=== PATIENT | male | born 1965 | race Caucasian/White ===

== ENCOUNTER 2017-02-04 11:40 | Emergency (ER) | payer OTHER ==
[~2017-02-04] VITALS: Ht 177.8 cm; Wt 91.5 kg
[2017-02-04 11:43] VITALS: TEMP 36.5; Ht 177.8 cm; Wt 91.5 kg
--- NOTE | 2017-02-04 11:58 | EMERGENCY ROOM VISIT NOTE ---
History First contact with patient: 11:48 Chief Complaint: SHOULDER PAIN Stated Complaint: LEFT SHOULDER PAIN/INJURY History of Present Illness The patient is a 51 year old male who presents to the Emergency Room with complaints of left shoulder injury. The patient was playing softball yesterday. He was diving into [employer] and injured the left shoulder. He had very significant and severe pain overnight. The patient is unable to lift his arm up. The patient rates his discomfort a 3/10. He denies striking his head or having loss of consciousness. He denies any numbness or tingling. He denies any chest pain or trouble breathing. He denies any other injury. He denies any previous shoulder injury. Review of Systems A 10 system review of systems was completed with positives and pertinent negatives listed in the HPI. Past Medical/Surgical History patient denies Social History Smoking Status: Never Smoker Marital Status: Housing Status: lives with family Current/Historical Medications No Active Prescriptions or Reported Meds Allergies Coded Allergies: No Known Allergies (Verified , 02/04/17) Physical Exam Vital Signs Date Time Temp Pulse Resp B/P (MAP) Pulse Ox O2 Delivery O2 Flow Rate FiO2 02/04/17 12:42 70 20 135/78 98 02/04/17 11:43 36.5 63 16 144/89 97 Room Air Physical Exam VITALS: Vitals are noted on the nurse's note and reviewed by myself. Vital signs stable. GENERAL: This is a 51-year-old male, in no acute distress, nondiaphoretic, well- developed well-nourished. SKIN: There is edema noted to the left shoulder. There is no obvious deformity. There are no open areas. There is no tenting of the skin. Capillary reflex less than 2 seconds. HEAD: Normocephalic atraumatic. EARS: The external ears are normal in appearance. EYES: Pupils equal round and reactive to light and accommodation. Conjunctivae without injection, sclerae without icterus. Extraocular movements intact. NOSE: Patent, turbinates without inflammation or discharge. MOUTH: Mucous membranes moist. NECK: Supple without nuchal rigidity. HEART: Regular rate and rhythm without murmurs gallops or rubs. LUNGS: Clear to auscultation bilaterally without wheezes, rales or rhonchi. No retractions or accessory muscle use. No chest wall tenderness. MUSCULOSKELETAL: There is edema noted to the left shoulder. Range of motion is markedly decreased. It is difficult to fully assess the shoulder due to the amount of swelling. There may be a small step off or sulcus sign. There is no tenderness over the clavicle. There is no posterior shoulder tenderness. There is no proximal humeral tenderness. The remaining extremities are unremarkable. NEURO: Patient was alert and oriented to person place and time. No focal neurological deficits. Medical Decision & Procedures ER Provider Diagnostic Interpretation: [~ rep ct add3]] LEFT SHOULDER MIN 2 VIEWS ROUTINE CLINICAL HISTORY: left shoulder injury trauma. Pain. COMPARISON: None. DISCUSSION: Grade 1 separation left acromioclavicular joint is noted with the patient in internal rotation. No evidence for fracture. Glenohumeral joint is intact. There is no evidence for soft tissue swelling. IMPRESSION: Positional grade 1 separation left acromioclavicular joint. Otherwise negative study ED Course The patient was seen and examined. Previous visits were reviewed. The patient has an isolated left shoulder injury. He appears to have a grade 1 acromioclavicular separation. However, the patient does have a moderate amount of edema. And concerned there may be an additional underlying soft tissue injury. The patient was placed in a sling and the position was satisfactory. He declined pain medication. He should contact orthopedics for a follow-up appointment for further evaluation and management. Case management met with the patient to help facilitate a follow-up appointment with orthopedics. He should return to the ER with any worsening symptoms. Medical Decision The differential diagnosis includes extremity fracture, contusion, dislocation, rotator cuff injury, soft tissue injury, among others Impression Primary Impression: AC separation Departure Information Dispostion Home / Self-Care Condition GOOD Prescriptions No Active Prescriptions or Reported Meds Referrals Douglas Powers M.D. (PCP) Travis Christian, DO Patient Instructions [facility], Treatment for Shoulder Separation Additional Instructions Motrin 600mg every 6-8 hours for moderate pain Wear the sling until seen by orthopedics Return with any worsening pain, numbness/tingling Problem Qualifiers Primary Impression: AC separation Encounter type: initial encounter Laterality: left Qualified Codes: S43.102A - Unspecified dislocation of left acromioclavicular joint, initial encounter
--- NOTE | 2017-02-04 12:15 | DIAGNOSTIC IMAGING REPORT ---
LEFT SHOULDER MIN 2 VIEWS ROUTINE CLINICAL HISTORY: left shoulder injury trauma. Pain. COMPARISON: None. DISCUSSION: Grade 1 separation left acromioclavicular joint is noted with the patient in internal rotation. No evidence for fracture. Glenohumeral joint is intact. There is no evidence for soft tissue swelling. IMPRESSION: Positional grade 1 separation left acromioclavicular joint. Otherwise negative study The above report was generated using voice recognition software. It may contain grammatical, syntax or spelling errors. Electronically signed by: Seferino Reinoso M.D. 02/04/2017 12:13 PM Dictated Date/Time: 02/04/2017 12:13 PM
[2017-02-04 12:42] VITALS: BP 135/78; PULSE 70; O2SAT 98
== END 2017-02-04 12:45 | disposition home or self-care (01) ==
LOC: C.EDB 11:42 → C.EDD 12:45
DX: S43.102A Unspecified dislocation of left acromioclavicular joint, initial encounter (principal); X58.XXXA Exposure to other specified factors, initial encounter; Y93.64 Activity, baseball

== ENCOUNTER 2017-04-16 21:17 | Emergency (ER) | payer OTHER ==
[~2017-04-16] VITALS: Ht 177.8 cm; Wt 90.8 kg
[2017-04-16 21:21] VITALS: TEMP 36.9; Ht 177.8 cm; Wt 90.8 kg
[2017-04-16] MEDS ORDERED: PROPARACAINE HCL 0.5% OP SOLN 15 ML BTL OP STA (22:10)
[2017-04-16] MEDS ORDERED: CIPROFLOXACIN HCL 0.3% OP SOLN 2.5 ML BTL OP ONE (22:30)
[2017-04-16 22:33] VITALS: BP 116/73; PULSE 80; O2SAT 96
--- NOTE | 2017-04-18 00:17 | EMERGENCY ROOM VISIT NOTE ---
ED Visit Note First contact with patient: 21:50 Chief Complaint: My right eye is swollen. History of Present Illness: Mr. Knowles is a 52-year-old white male who ambulates into the ED accompanied by his complaining of right eye swelling. Patient reports he was weed whacking his daughter's lawn rand at approximately 7:30 PM, approximately 2 hours ago. He reports he went into the house to try to flush a piece of grass that got in his eye out and accidentally put earwax removal liquid in his eye. He noticed this within seconds and flushed his eye. Since that time he has noted redness of the sclera and has developed a fluidlike bubble in the inferior aspect of the lateral canthus. Currently with the exception of the swelling patient has no symptoms and denies fevers, chills, headache, dizziness, visual changes, light sensitivity, vomiting. Patient does report he felt this was a possible allergic reaction initially and did take Benadryl without any change in his condition. Review of Systems: As noted above in history of present illness. Past Medical History: Gastric ulcer. Current Medications: Patient denies. Allergies to Medications: Patient denies. Social History: Patient is currently employed; he feels safe in his home environment; he admits to tobacco and alcohol use. Tetanus Immunization Status: Patient reports up-to-date. Physical Examination: Vital Signs: Date Time Temp Pulse Resp B/P (MAP) Pulse Ox O2 Delivery O2 Flow Rate FiO2 04/16/17 22:33 80 16 116/73 96 Room Air 04/16/17 21:21 36.9 104 18 128/81 93 Room Air GENERAL: 52-year-old male in mild distress due to symptoms, nontoxic-appearing, afebrile and hemodynamically stable. NEUROLOGICAL: Awake, alert and oriented to person, place and time. Answering questions appropriately and following commands. Normal gait. Good hand eye coordination. SKIN: Warm, dry and pink. HEENT: Atraumatic and normocephalic. Mild erythema and edema of the right orbit. The skin does not appear cellulitic, it is not hot to touch and is not tender to touch. PERRLA. EOMI without nystagmus. Sclera injected and conjunctiva pink with drainage of clear fluid. There is chemosis of the lower conjunctiva and in the lateral canthus this is slightly enlarged and there is a small amount of blood contained within the sac of fluid in this area insistent with a subconjunctival hemorrhage. I did not appreciate any foreign bodies under the eyelids are embedded in the cornea. The anterior chamber was clear. On slit lamp examination with staining I do not see any uptake of the staining or corneal damage. Visual Acuity: Right 20/70 without correction, Left 20/40 without correction; patient does report he normally wears contacts and did not bring a secondary of glasses. ED Course: Patient is assessed as noted above. Patient's medication list was reviewed. Alcaine was used to anesthetize the eye for examination. 2 drops of Ciloxan ophthalmic solution was placed in his right eye. Patient was educated about today's findings and instructed on history and the plan; he verbalized understanding and agreement with this plan. Clinical Impression: Chemosis of the right conjunctiva. Subconjunctival hemorrhage. Decision-Making: Initially my differential diagnosis I considered corneal abrasion, corneal ulcer, corneal burn, subconjunctival hemorrhage and other causes. Disposition: Patient discharged home in stable condition accompanied by his ; prior to departure he was reassessed and subjectively reported he was still pain and symptom-free. Plan: Patient was prescribed Ciloxan ophthalmic solution and encouraged to use 2 drops in his right eye every 4 hours while awake for 5 days. Patient was referred to ophthalmology for definitive care and treatment. Patient was encouraged return ED for severe pain, fevers, headaches, vomiting, visual changes or any new/concerning symptoms.
== END 2017-04-16 22:35 | disposition home or self-care (01) ==
LOC: C.EDB 21:18 → C.EDD 22:35
DX: H11.421 Conjunctival edema, right eye (principal); H11.31 Conjunctival hemorrhage, right eye; F17.200 Nicotine dependence, unspecified, uncomplicated

== ENCOUNTER → 2017-06-04 | Outpatient (CLI) | payer OTHER ==
[2017-06-04 15:31] LABS: BASO % 0.5 %; BASO ABS # 0.03 K/uL (0-0.2); COMPLETE YES; EOS % 2.4 %; HEMATOCRIT 41.3 % (42-52); IG% 0.2 %; LYMPH % 32.8 %; LYMPH ABS # 2.08 K/uL (1.2-3.4); MEAN CELL VOLUME 89.8 fL (80-100); MEAN CORPUSCULAR HEMOGLOBIN 32.2 pg (25-34); MEAN CORPUSCULAR HGB CONC 35.8 g/dl (32-36); MEAN PLATELET VOLUME 10.5 fL (7.4-10.4); MONO % 9.4 %; NEUT % 54.7 %; PLATELET COUNT 220 K/uL (130-400); WHITE BLOOD COUNT 6.35 K/uL (4.8-10.8)
[2017-06-04 16:08] LABS: BLOOD UREA NITROGEN 15 mg/dl (7-18); BUN/CREATININE RATIO 17.5 (10-20); CARBON DIOXIDE 27 mmol/L (21-32); CHLORIDE 103 mmol/L (98-107); CREATININE 0.86 mg/dl (0.60-1.40); GLUCOSE 81 mg/dl (70-99); POTASSIUM 3.8 mmol/L (3.5-5.1); SODIUM 139 mmol/L (136-145)
== END | disposition home or self-care (01) ==
LOC: C.LAB 13:31
PROVIDERS: ATTEND Orthopaedic Surgery
DX: M75.122 Complete rotator cuff tear or rupture of left shoulder, not specified as traumatic (principal)

== ENCOUNTER → 2017-07-05 | Day surgery (SDC) | payer OTHER ==
[2017-06-07 10:36] VITALS: Ht 177.8 cm; Wt 86.4 kg
[~2017-07-05] VITALS: Ht 177.8 cm; Wt 86.4 kg
[~2017-07-05] MED LIST: ASPCH81X PO; ATROPINE SULFATE 0.1 MG/ML 5ML SYR IV PRN; BISA-16 PO; BUPIVACAINE/EPINEPHRINE 0.25% 1:200,000 30 ML VIAL ONE; CEFAZOLIN 2000MG IV PUSH 10 ML IV SCH; DEXAMETHASONE SOD INJ 4 MG/ML VIAL ONE; EpHEDrine SULFATE INJ 50 MG/ML AMP IV PRN; EpINEphrine INJ 1MG/ML AMP 1 MG/ML AMP ONE; FENTANYL CITRATE INJ 50 MCG/1 ML 2 ML VIAL IV PRN; FENTANYL CITRATE INJ 50 MCG/1 ML 2 ML VIAL ONE; KETO10TA PO; KETOROLAC TROMETHAMINE 30 MG/ML VIAL ONE; LACTATED RINGER'S 1000ML 1,000 ML IV SCH; LIDOCAINE HCL 2% 2 ML VIAL (20MG/ML) ONE; MIDAZOLAM HCL 1 MG/ML 2ML VIAL ONE; MULT-506 PO; ONDA4TAB10 SL; ONDANSETRON INJ 2 MG/ML 2 ML VIAL IV PRN; ONDANSETRON INJ 2 MG/ML 2 ML VIAL ONE; OXYC-57 PO; OXYCODONE/ACETAMINOPHEN 5-325 TAB PO PRN; PROPOFOL IV EMULSION 10 MG/ML 20 ML VIAL IV ONE; SODIUM CHLORIDE 0.9% 1000ML 1,000 ML IV SCH; TRAM-10 PO
--- NOTE | 2017-07-05 10:25 | History & Physical Bridge - SC ---
H&P Re-Evaluation Bridge Note: I have examined the patient, reviewed the History & Physical and in the interval since the performance of the History & Physical I have noted the following changes of clinical significance: No changes noted
--- NOTE | 2017-07-05 12:48 | [facility] Post Operative Brief Note ---
Immediate Operative Summary Operative Date Jul 05, 2017. Pre-Operative Diagnosis Left shoulder medium rotator cuff tear Post-Operative Diagnosis Same as preop Procedure(s) Performed Left Shoulder Arthroscopy, Medium Rotator Cuff Repair, Arthroscopic Biceps Tenodesis Surgeon Dr. Christian Status Controller Surgeon(s) Dony Henry PA-C Estimated Blood Loss 5 mL Findings as above Specimens None Complication(s) None Disposition Recovery Room / PACU
--- NOTE | 2017-07-05 12:57 | Discharge Instructions-SurgCtr ---
Discharge Instructions Date of Service Jul 05, 2017. Visit Reason for Visit: Left Shoulder Full Thickness Cuff Tear, Contusion Discharge Discharge Diagnosis / Problem: SAME ABOVE Discharge Goals Goal(s): Decrease discomfort, Improve function Activity Recommendations Activity Limitations: as noted below Lifting Limitations: until after follow-up appointment Exercise/Sports Limitations: until after follow-up appointment Shower/Bathe: tomorrow Anesthesia . Post Anesthesia Instructions: If you have had General Anesthesia or IV Sedation: * Do not drive today. * Resume driving when surgeon permits. * Do not make important decisions or sign legal documents today. * Call surgeon for: 1. Temperature elevations greater than 101 degrees F. 2. Uncontrollable pain. 3. Excessive bleeding. 4. Persistent nausea and vomiting. 5. Medication intolerance (nausea, vomiting or rash). * For nausea and vomiting use only clear liquids such as: tea, soda, bouillon until nausea subsides, then gradually increase diet as tolerated. * If you have any concerns or questions, call your surgeon's office. If physician is unavailable and it is an emergency, call 911 or go to the nearest emergency room. . Instructions / Follow-Up Instructions / Follow-Up MEDICATIONS: * Resume previous medications unless instructed otherwise by your surgeon. * Always take pain medication on a full stomach or with food to avoid upset stomach. * Do not drink alcohol or drive while taking narcotics. * Ibuprofen or Tylenol may be taken if narcotic not needed. SPECIAL CARE INSTRUCTIONS: __ None _X_ Keep extremity elevated and iced x 48 hours; apply ice 20-30 minutes 8-10 times/day. May remove at night. __ Sling __24 hrs/day __ Remove at night _X_ Shoulder Immobilizer (MAY REMOVE AFTER 48 HOURS ONLY TO SHOWER AND FOR THERAPY) _X_ 24 hrs/day __ Remove at night _X_ Dressing __ Maintain until seen in office, may shower with plastic over site _X_ Remove dressings in 24-48 hours and then may shower _X_ Cover incisions with band-aids after showering __ Do not remove steri-strips Call physician if chills or temperature rises above 102 degrees or pain unrelieved by prescribed pain medications at . . Diet Recommendations Home Diet: no limitations Fluid Restriction: None Procedures Procedures Performed: Left Shoulder Arthroscopy, Medium Rotator Cuff Repair, Arthroscopic Biceps Tenodesis Pending Studies Studies pending at discharge: no Work Instructions Return To Work: after follow-up Lifting Limitations: Medical Emergencies . Who to Call and When: Medical Emergencies: If at any time you feel your situation is an emergency, please call 911 immediately. . Non-Emergent Contact Non-Emergency issues call your: Primary Care Provider Call Non-Emergent contact if: you have a fever, temperature is above 101.5 . . "Provider Documentation" section prepared by Dony Henry. .
--- NOTE | 2017-07-05 13:21 | Anesthesia Progress Nt - [facility] ---
Anesthesia Post Op Note Date & Time Jul 05, 2017 at 13:21 Vital Signs Pain Intensity: 4 Vital Signs Past 12 Hours Date Time Temp Pulse Resp B/P (MAP) Pulse Ox O2 Delivery O2 Flow Rate FiO2 07/05/17 13:06 61 10 98 07/05/17 13:06 60 10 07/05/17 13:05 123/87 07/05/17 13:03 132/89 07/05/17 13:01 59 25 98 07/05/17 13:01 60 25 07/05/17 13:00 142/106 07/05/17 12:56 57 9 99 07/05/17 12:56 59 9 07/05/17 12:55 36.3 53 16 130/88 99 Mask 5 07/05/17 12:55 130/88 07/05/17 12:54 121/94 07/05/17 11:11 13 07/05/17 11:10 115/71 07/05/17 11:07 59 12 98 07/05/17 11:07 60 07/05/17 11:06 61 07/05/17 11:06 60 11 98 07/05/17 11:05 98/73 07/05/17 11:01 63 13 98 07/05/17 11:01 63 07/05/17 11:00 63 07/05/17 11:00 63 14 103/71 98 07/05/17 10:59 63 17 99 07/05/17 10:59 63 07/05/17 10:58 61 07/05/17 10:58 61 19 99 07/05/17 10:57 62 07/05/17 10:57 62 12 99 07/05/17 10:55 112/67 07/05/17 10:52 65 0 07/05/17 10:47 61 0 07/05/17 10:42 64 0 07/05/17 09:05 37.0 65 22 118/85 (96) 97 Room Air Notes Mental Status: alert / awake / arousable, participated in evaluation Pt Amnestic to Procedure: Yes Nausea / Vomiting: adequately controlled Pain: adequately controlled Airway Patency, RR, SpO2: stable & adequate BP & HR: stable & adequate Hydration State: stable & adequate Anesthetic Complications: no major complications apparent
[2017-07-05 13:42] VITALS: TEMP 36.4
[2017-07-05 14:11] VITALS: BP 127/84; O2SAT 96
--- NOTE | 2017-07-05 14:33 | OPERATIVE REPORT ---
DATE OF OPERATION: 07/05/2017 PREOPERATIVE DIAGNOSIS: Medium sized left rotator cuff tear. POSTOPERATIVE DIAGNOSIS: Same. PROCEDURE: Left shoulder diagnostic arthroscopy with limited debridement, acromioplasty, medium size rotator cuff repair and arthroscopic biceps tenodesis. SURGEON: Dr. Travis Christian. NURSE SANE: Efra Henry PA-C, whose assistance was necessary for positioning the arm and helping with instrumentation. ANESTHESIA: General with a left interscalene nerve block. COMPLICATIONS: None. CONDITION: Stable to PACU. INDICATIONS: Dayron is a pleasant 52-year-old male who was sliding into base about 5 months ago when he hurt his left shoulder. He was initially treated at the joint separation, but has continued to have pain and weakness. MRI was done which showed a medium sized rotator cuff tear. He elected to undergo arthroscopy. OPERATION AND FINDINGS: On 07/05/2017, he arrived at [facility] for the above procedure. He was seen in the preoperative holding area and the operative extremity was identified and signed. He was given a preoperative antibiotic and a left interscalene nerve block. He was taken back to the operating room, laid on the table in supine position and put under general anesthesia. He was then put into the beachchair position. The left shoulder was prepped and draped in sterile fashion. Time-out was done and the patient's operative extremity was properly identified. A scope was introduced in the posterior portal. Diagnostic arthroscopy showed no cartilage damage to the humeral head or the glenoid. There was some fraying of the biceps tendon. There was a tear of the entire supraspinatus. The tear involved the biceps ilan mechanism. The subscapularis was intact. The infraspinatus and teres minor were intact. An anterior portal was made. A shaver was used to do a limited debridement of the intraarticular structures and the biceps tendon was arthroscopically tenotomized for later tenodesis. The scope was then put into the subacromial space. A lateral portal was made. A shaver was used to do a complete subacromial and subdeltoid bursectomy. An ablator was used to tease the coracoacromial ligament off the undersurface of the acromion and a 5-0 latonya was used to complete an acromioplasty of a Bigliani type 3 acromion. A shaver was used to remove any excess debris and attention was turned to the rotator cuff. It was a crescent shaped far anterior supraspinatus tear. The biceps tendon was exposed. An additional anterolateral portal was made and Loly cannulas were placed in each of the lateral portals. The greater tuberosity was prepared with a ring curette and a microfracture. The rotator cuff was then fixed with an Arthrex SpeedBridge configuration using 4.75 mm BioComposite SwiveLock suture anchors and FiberTapes. This gave a nice knotless SpeedBridge repair. The long head of the biceps tendon was tagged with a FiberLink and incorporated into the anterior lateral anchor for arthroscopic biceps tenodesis. Multiple pictures were taken. The scope was put back into the glenohumeral joint and the articular margin had been restored. Pictures were taken. Arthroscopic instruments were removed from the shoulder. Portal sites were closed with 3-0 nylon. He was then placed in a soft dressing and an abduction arm sling. He was then extubated, transferred to a litter and taken to the postanesthesia care unit in stable condition. He tolerated the procedure well. I attest to the content of the Intraoperative Record and any orders documented therein. Any exception s are noted below.
== END | disposition home or self-care (01) ==
LOC: X.SURG 08:46
PROVIDERS: ATTEND Orthopaedic Surgery
DX: S46.012A Strain of muscle(s) and tendon(s) of the rotator cuff of left shoulder, initial encounter (principal); X50.0XXA Overexertion from strenuous movement or load, initial encounter; Y93.64 Activity, baseball; G47.33 Obstructive sleep apnea (adult) (pediatric); G62.9 Polyneuropathy, unspecified; Z72.0 Tobacco use; Z79.82 Long term (current) use of aspirin

== ENCOUNTER 2017-07-07 22:10 | Emergency (ER) | payer OTHER ==
[~2017-07-07] VITALS: Ht 177.8 cm; Wt 90.0 kg
[~2017-07-07 22:10] MED LIST changes: -ATROPINE SULFATE 0.1 MG/ML 5ML SYR IV PRN; -BISA-16 PO; -BUPIVACAINE/EPINEPHRINE 0.25% 1:200,000 30 ML VIAL ONE; -CEFAZOLIN 2000MG IV PUSH 10 ML IV SCH; -DEXAMETHASONE SOD INJ 4 MG/ML VIAL ONE; -EpHEDrine SULFATE INJ 50 MG/ML AMP IV PRN; -EpINEphrine INJ 1MG/ML AMP 1 MG/ML AMP ONE; -FENTANYL CITRATE INJ 50 MCG/1 ML 2 ML VIAL IV PRN; -FENTANYL CITRATE INJ 50 MCG/1 ML 2 ML VIAL ONE; -KETOROLAC TROMETHAMINE 30 MG/ML VIAL ONE; -LACTATED RINGER'S 1000ML 1,000 ML IV SCH; -LIDOCAINE HCL 2% 2 ML VIAL (20MG/ML) ONE; -MIDAZOLAM HCL 1 MG/ML 2ML VIAL ONE; -ONDA4TAB10 SL; -ONDANSETRON INJ 2 MG/ML 2 ML VIAL IV PRN; -ONDANSETRON INJ 2 MG/ML 2 ML VIAL ONE; -OXYCODONE/ACETAMINOPHEN 5-325 TAB PO PRN; -PROPOFOL IV EMULSION 10 MG/ML 20 ML VIAL IV ONE; -SODIUM CHLORIDE 0.9% 1000ML 1,000 ML IV SCH; -TRAM-10 PO
[2017-07-07 22:17] VITALS: TEMP 37; Ht 177.8 cm; Wt 90.0 kg
[2017-07-07] MEDS ORDERED: DOCUSATE SODIUM 100 MG CAP PO ONE (22:45)
[2017-07-07] MEDS ORDERED: MAGNESIUM CITRATE 296 ML/BTL PO ONE (22:45)
[2017-07-07] MEDS ORDERED: ONDANSETRON HOME PACK 4MG OD TAB PO ONE (22:45)
[2017-07-07] MEDS ORDERED: KETO10TA PO (22:46)
[2017-07-07] MEDS ORDERED: OXYC-57 PO (22:47)
[2017-07-07] MEDS ORDERED: BISA-16 PO (22:47)
[2017-07-07] MEDS ORDERED: SODIUM CHLORIDE 0.9% 1000ML 1,000 ML IV STA (23:51)
[2017-07-07] MEDS ORDERED: ONDANSETRON INJ 2 MG/ML 2 ML VIAL IV STA (23:51)
[2017-07-08] MEDS ORDERED: DICYCLOMINE HCL 10 MG/ML 2 ML AMP IM ONE
[2017-07-08] MEDS ORDERED: KETOROLAC TROMETHAMINE 30 MG/ML VIAL IV STA (00:42)
[2017-07-08] MEDS ORDERED: MoRPHine SULFATE 4 MG/ML 1 ML CARP\\VIAL IV STA (00:52)
[2017-07-08] MEDS ORDERED: MoRPHine SULFATE 4 MG/ML 1 ML CARP\\VIAL ONE (00:53)
[2017-07-08 01:04] LABS: BASO % 0.2 %; BASO ABS # 0.02 K/uL (0-0.2); EOS % 0.1 %; EOS ABS # 0.01 K/uL (0-0.5); HEMATOCRIT 39.3 % (42-52); HEMOGLOBIN 14.5 g/dL (14.0-18.0); IG# 0.04 K/uL (0.00-0.02); LYMPH % 6.5 %; LYMPH ABS # 0.79 K/uL (1.2-3.4); MEAN CELL VOLUME 88.1 fL (80-100); MEAN CORPUSCULAR HEMOGLOBIN 32.5 pg (25-34); MEAN CORPUSCULAR HGB CONC 36.9 g/dl (32-36); MEAN PLATELET VOLUME 9.7 fL (7.4-10.4); MONO % 7.5 %; NEUT % 85.4 %; NEUT ABS # 10.31 K/uL (1.4-6.5); PLATELET COUNT 200 K/uL (130-400); RED CELL DISTRIBUTION WIDTH CV 12.4 % (11.5-14.5); RED CELL DISTRIBUTION WIDTH SD 39.6 fL (36.4-46.3); WHITE BLOOD COUNT 12.07 K/uL (4.8-10.8)
[2017-07-08 01:13] LABS: ISTAT CREATININE 0.9 mg/dl (0.6-1.3); ISTAT IONIZED CALCIUM 1.01 mmol/l (1.12-1.32); ISTAT POTASSIUM 3.9 mEq/L (3.3-5.0)
[2017-07-08] MEDS ORDERED: OPTIRAY 320 IV PRN (01:15)
[2017-07-08 01:29] LABS: ALBUMIN 3.5 gm/dl (3.4-5.0); CALCIUM 8.8 mg/dl (8.5-10.1); CREATININE 0.93 mg/dl (0.60-1.40); POTASSIUM 3.9 mmol/L (3.5-5.1)
[2017-07-08 01:32] LABS: TOTAL PROTEIN 6.9 gm/dl (6.4-8.2)
[2017-07-08] MEDS ORDERED: TRAMADOL HCL 50 MG TAB PO STA (01:58)
[2017-07-08] MEDS ORDERED: ONDA4TAB10 SL (02:46)
[2017-07-08] MEDS ORDERED: TRAM-10 PO (02:46)
[2017-07-08] MEDS ORDERED: ONDANSETRON HOME PACK 4MG OD TAB PO ONE (03:00)
[2017-07-08] MEDS ORDERED: TRAMADOL HCL 50 MG HOME PACK PO ONE (03:00)
[2017-07-08 03:02] VITALS: BP 126/81; PULSE 81; O2SAT 94
--- NOTE | 2017-07-08 03:13 | EMERGENCY ROOM VISIT NOTE ---
History First contact with patient: 22:22 Chief Complaint: ABDOMINAL PAIN Stated Complaint: SHOULDER PAIN Nursing Triage Summary: abd pain from constipation from shoulder surgery on , pt had bm right before leaving with ems then when he arrived here to er History of Present Illness The patient is a 52 year old male who presents to the Emergency Room with complaints of constipation for the past 2 and half days after having shoulder surgery by Dr. Christian. Patient states he was not informed take a stool softener with the narcotics. he has taken Percocet for the pain. No prior abdominal surgeries. No history of bowel obstructions. Patient states he is healthy and has no active medical problems. Patient took some stool softeners earlier today and then while in the EMS had a large bowel movement and feels much better now. Patient states he would like to go home now. Patient then had another large bowel movement while in the ER. Patient denies chest pain, dyspnea, fever, chills, nausea, vomiting, diarrhea, back pain, urinary sepsis, testicular pain. While patient was getting ready to be discharged home he then developed abdominal pain with nausea and vomiting. He had pain to his lower abdomen. Currently 5 out of 10. Nothing makes it better or worse. It does not radiate. Review of Systems See HPI for pertinent positives & negatives. A total of 10 systems reviewed and were otherwise negative. Past Medical/Surgical History Left shoulder surgery Social History Smoking Status: Never Smoker Drug Use: none Marital Status: Housing Status: lives with family Occupation Status: employed Current/Historical Medications Scheduled Ketorolac (Toradol), 10 MG PO Q8 Ondasetron Odt (Zofran Odt), 4 MG SL Q6H Scheduled PRN Bisacodyl (Dulcolax), 5 MG PO UD PRN for Constipation Oxycodone/Acetaminophen 5MG/325MG (Percocet 5MG/325MG), 1-2 TABLETS PO Q6H PRN for Pain Tramadol (Ultram), 1-2 TAB PO Q4H PRN for Pain Physical Exam Vital Signs Date Time Temp Pulse Resp B/P (MAP) Pulse Ox O2 Delivery O2 Flow Rate FiO2 07/08/17 01:26 69 18 139/86 97 Room Air 07/07/17 22:17 37.0 77 20 155/95 94 Room Air Physical Exam VITALS: Vitals are noted on the nurse's note and reviewed by myself. Vital signs stable. GENERAL: Pleasant male, in no acute distress, nondiaphoretic, well-developed well-nourished. SKIN: Left shoulder surgical scars and sutures intact without signs of infection. The skin was without rashes, erythema, edema, or bruising. There is no tenting of the skin. Capillary reflex less than 2 seconds. HEAD: Normocephalic atraumatic. EARS: External auditory canals clear, tympanic membranes pearly townsend without erythema or effusion bilaterally. EYES: Pupils equal round and reactive to light and accommodation. Conjunctivae without injection, sclerae without icterus. Extraocular movements intact. NOSE: Patent, turbinates without inflammation or discharge. MOUTH: Mucous membranes moist. Pharynx without erythema or exudate. Uvula midline. Airway patent. Tongue does not deviate. NECK: Supple without nuchal rigidity. No lymphadenopathy. No thyromegaly. Cervical spine is nontender. No JVD. HEART: Regular rate and rhythm without murmurs gallops or rubs. LUNGS: Clear to auscultation bilaterally without wheezes, rales or rhonchi. No dullness to percussion. No retractions or accessory muscle use. ABDOMEN: Positive bowel sounds x 4. Normal tympanic percussion. Soft, nontender, without masses or organomegaly. Sims sign negative. No guarding or rebound tenderness. No CVA tenderness MUSCULOSKELETAL: No muscle atrophy, erythema, or edema noted. NEURO: Patient was alert and oriented to person place and time. Normal sensation to light and sharp touch. No focal neurological deficits. Medical Decision & Procedures Laboratory Results 07/08/17 00:56 Red Blood Count 4.46, Mean Corpuscular Volume 88.1, Mean Corpuscular Hemoglobin 32.5, Mean Corpuscular Hemoglobin Concent 36.9, Mean Platelet Volume 9.7, Neutrophils (%) (Auto) 85.4, Lymphocytes (%) (Auto) 6.5, Monocytes (%) (Auto) 7.5, Eosinophils (%) (Auto) 0.1, Basophils (%) (Auto) 0.2, Neutrophils # (Auto) 10.31, Lymphocytes # (Auto) 0.79, Monocytes # (Auto) 0.90, Eosinophils # (Auto) 0.01, Basophils # (Auto) 0.02 07/08/17 00:56 Test 07/08/17 00:56 07/08/17 01:01 White Blood Count 12.07 K/uL (4.8-10.8) Red Blood Count 4.46 M/uL (4.7-6.1) Hemoglobin 14.5 g/dL (14.0-18.0) Hematocrit 39.3 % (42-52) Mean Corpuscular Volume 88.1 fL (80-100) Mean Corpuscular Hemoglobin 32.5 pg (25-34) Mean Corpuscular Hemoglobin Concent 36.9 g/dl (32-36) Platelet Count 200 K/uL (130-400) Mean Platelet Volume 9.7 fL (7.4-10.4) Neutrophils (%) (Auto) 85.4 % Lymphocytes (%) (Auto) 6.5 % Monocytes (%) (Auto) 7.5 % Eosinophils (%) (Auto) 0.1 % Basophils (%) (Auto) 0.2 % Neutrophils # (Auto) 10.31 K/uL (1.4-6.5) Lymphocytes # (Auto) 0.79 K/uL (1.2-3.4) Monocytes # (Auto) 0.90 K/uL (0.11-0.59) Eosinophils # (Auto) 0.01 K/uL (0-0.5) Basophils # (Auto) 0.02 K/uL (0-0.2) RDW Standard Deviation 39.6 fL (36.4-46.3) RDW Coefficient of Variation 12.4 % (11.5-14.5) Immature Granulocyte % (Auto) 0.3 % Immature Granulocyte # (Auto) 0.04 K/uL (0.00-0.02) Est Creatinine Clear Calc Drug Dose 104.9 ml/min Estimated GFR () 109.0 Estimated GFR (Non- 94.1 BUN/Creatinine Ratio 16.2 (10-20) Calcium Level 8.8 mg/dl (8.5-10.1) Total Bilirubin 0.8 mg/dl (0.2-1) Direct Bilirubin 0.2 mg/dl (0-0.2) Aspartate Amino Transf (AST/SGOT) 15 U/L (15-37) Alanine Aminotransferase (ALT/SGPT) 26 U/L (12-78) Alkaline Phosphatase 49 U/L (45-117) Total Protein 6.9 gm/dl (6.4-8.2) Albumin 3.5 gm/dl (3.4-5.0) Lipase 151 U/L (73-393) Bedside Hemoglobin 13.6 g/dl (14.0-18.0) Bedside Hematocrit 40 % (42-52) Bedside Sodium 136 mEq/L (135-144) Bedside Potassium 3.9 mEq/L (3.3-5.0) Bedside Chloride 107 mEq/L (101-112) Bedside Total CO2 20 mEq/l (24-31) Anion Gap 15.0 mmol/L (16-25) Bedside Blood Urea Nitrogen 14 mg/dl (7-18) Bedside Creatinine 0.9 mg/dl (0.6-1.3) Bedside Glucose (other) 123 mg/dl (70-99) Bedside Ionized Calcium (Kathleen) 1.01 mmol/l (1.12-1.32) Medications Administered Medications (Trade) Dose Ordered Sig/Brigette Route Start Time Stop Time Status Last Admin Dose Admin Docusate Sodium (coLACE CAP) 200 mg NOW ONCE PO 07/07/17 22:45 07/07/17 22:46 DC 07/07/17 22:45 200 MG Ondansetron HCl (ZOFRAN ODT 4MG Home Pack) 1 homepack UD ONCE PO 07/07/17 22:45 07/07/17 22:46 DC 07/07/17 22:45 1 HOMEPACK Sodium Chloride 1,000 ml @ 999 mls/hr Q1H1M STAT IV 07/07/17 23:51 07/08/17 00:51 DC 07/08/17 00:02 999 MLS/HR Ondansetron HCl (Zofran Inj) 4 mg NOW STAT IV 07/07/17 23:51 07/07/17 23:54 DC 07/08/17 00:02 4 MG Dicyclomine HCl (Bentyl Inj) 20 mg NOW ONCE IM 07/08/17 00:00 07/08/17 00:01 DC 07/08/17 00:02 20 MG Ketorolac Tromethamine (Toradol Inj) 30 mg NOW STAT IV 07/08/17 00:42 07/08/17 00:43 DC 07/08/17 00:42 30 MG Morphine Sulfate (MoRPHine SULFATE INJ) 4 mg STK-MED ONCE .ROUTE 07/08/17 00:53 07/08/17 00:54 DC 07/08/17 01:50 4 MG Tramadol HCl (Ultram Tab) 50 mg ONE STAT PO 07/08/17 01:58 07/08/17 01:59 DC 07/08/17 02:02 50 MG Tramadol HCl (Ultram Home Pack) 1 homepack UD ONCE PO 07/08/17 03:00 07/08/17 03:01 DC 07/08/17 03:00 1 HOMEPACK ED Course Prior records/ancillary studies reviewed. Triage Nursing notes reviewed. Additional history obtained from family The patient's history was concerning for abdominal pain. Differential diagnosis: Etiologies such as constipation, appendicitis, diverticulitis, PUD, biliary pathology, UTI, pancreatitis, obstruction, mesenteric ischemia, aortic pathology , infections, inflammatory bowel disease, renal colic, as well as others were entertained. Physical examination findings: As above. ER treatment provided: IV fluids, Zofran, Toradol, Ultram On reassessment the patient felt better. Diagnostics interpreted by me: The labs revealed mild leukocytosis. No worrisome electrolyte abnormality Imaging studies: Abdominal series with no free air, obstruction or pneumothorax per my interpretation CT ABDOMEN & PELVIS With Contrast: Comparison: 02/09/2008 Circumferential wall thickening of the ascending colon, transverse colon and descending colon with pericolonic fat stranding from splenic flexure down to the left lower quadrant. Although these segments are not distended, the findings are consistent with acute infectious or inflammatory colitis. Less likely possibility is ischemic colitis. Appendix not visualized, but no secondary signs of acute appendicitis. Sigmoid diverticulosis without diverticulitis. Small bowel loops appear unremarkable. No obstruction or acute inflammatory process. Bilateral peripelvic renal cysts and exophytic left lower pole renal cyst measuring 2 cm. [id number]-uveen fat-containing umbilical hernia. No pelvic free fluid or fluid collections. Radiologist: Bryant Aviles M.D. Exam and history seem consistent with constipation that resolved her stool softeners and colitis. Patient was pain-free initially after the first half hour - hour while in the ER and his pain returned and he started with nausea and vomiting. Because of this further workup was initiated. Patient large bowel movements in the ER and the second one was soft. No blood or black. Patient was hydrated as above and medicated as above. Patient's exam and history seem more consistent with a colitis. He did not have acute abdomen on exam. He is well-appearing. His pain had resolved after the Toradol and the hydration. He was strongly encouraged if he takes narcotics in the future to take a stool softener. He verbalized understanding of this. He was advised to take Tylenol or Motrin first and if that does not work then he take Ultram and as last resort to take the Percocet. Patient was tolerating fluids. He had crackers without difficulties. He requested to leave. He was advised to follow -up with family care in his surgeon in a few days or here in the ER sooner for abdominal pain, fevers, black or blood in the stool, worsening signs or symptoms or as needed. By the evaluation outlined above emergent etiologies such as appendicitis, diverticulitis, PUD, biliary pathology, UTI, pancreatitis, obstruction, mesenteric ischemia, aortic pathology, infections, inflammatory bowel disease, renal colic, as well as others were deemed relatively unlikely. The pt informed about the findings as listed above. All questions were answered and pleased with the treatment. Return instructions were outlined and the patient was discharged in stable condition. Outpatient prescription management: Ultralana, Zofran Referral: The patient was referred back to their primary care physician for follow-up in 2 to 3 days for a recheck of the current condition. Case reviewed with my attending Medical Decision As above Medication Reconcilliation Current Medication List: was personally reviewed by me Blood Pressure Screening Patient's blood pressure: Normal blood pressure Impression Primary Impression: Colitis Additional Impression: Constipation Departure Information Dispostion Home / Self-Care Condition GOOD Prescriptions Ondasetron Odt (ZOFRAN ODT) 4 Mg Tab 4 MG SL Q6H, #10 TAB Prov: Flor Jones PA-C 07/08/17 Tramadol (Ultram) 50 Mg Tab 1-2 TAB PO Q4H Y for Pain, #30 TAB For Initial Treatment Prov: Flor Jones PA-C 07/08/17 Forms Call Back Authorization, HOME CARE DOCUMENTATION FORM, IMPORTANT VISIT INFORMATION Patient Instructions Constipation, [facility] Additional Instructions DO NOT drive, drink alcohol, operate machinery, or perform dangerous activities today. You were given medications in the ER that can affect your ability to safely function or operate a vehicle. Zofran 4 m tablet every 6 hours as needed for nausea and vomiting. Ultram 50 m-2 tablets every 4-6 hours as needed for moderate pain. No alcohol or driving on this medication. If you are still in severe amount of pain then you can take your Percocet but recommend that you take a stool softener with this such as Colace. Once you've finished your Toradol then start taking: Ibuprofen(Motrin, Advil) may be used for fever or pain. Use 600mg every six hours as needed. Take with food. Avoid using more than 2400mg in a 24 hour period. Do not use 2400mg per day for more than three consecutive days without physician direction. Prolonged inappropriate use can lead to stomach upset or ulcers. (AND/OR) Acetaminophen(Tylenol) may be used for fever or pain. Use 1000mg every six hours as needed. Avoid using more than 3000mg in a 24 hour period. You should take Colace twice a day until you're done taking narcotics for your Postsurgical pain. Increase your fluid and fiber intake. Rest and drink plenty of fluids as tolerated. Continue current medications. Avoid strenuous activities and anything that worsens your pain. Resume normal activities once your symptoms resolve. Return to the ER immediately for worsening or persistent abdominal pain, vomiting, fevers, chest pains, difficulty breathing, worsening of your condition , or as needed. Follow up with your primary physician in 2-3 days for a recheck of your current condition. Problem Qualifiers Additional Impression: Constipation Constipation type: unspecified constipation type Qualified Codes: K59.00 - Constipation, unspecified
--- NOTE | 2017-07-08 05:46 | DIAGNOSTIC IMAGING REPORT ---
ABDOMEN 2VIEW W/PA CHEST RTN CLINICAL HISTORY: abd pain, recent OR pain. Nausea. COMPARISON STUDY: 02/09/2008 FINDINGS: Mild atelectasis left base. Lungs otherwise are clear. Mild nonobstructive ileus. No secondary signs of free air. IMPRESSION: 1. Mild nonobstructive ileus. 2. Mild atelectasis left base. The above report was generated using voice recognition software. It may contain grammatical, syntax or spelling errors. Electronically signed by: Seferino Reinoso M.D. 07/08/2017 5:44 AM Dictated Date/Time: 07/08/2017 5:44 AM
--- NOTE | 2017-07-08 05:53 | DIAGNOSTIC IMAGING REPORT ---
ABD/PELVIS IV CONTRAST ONLY CT DOSE: 899.81 mGy.cm HISTORY: Pain rlq pain, recent OR on shoulder TECHNIQUE: Multiaxial CT images of the abdomen and pelvis were performed following the use of intravenous contrast. A dose lowering technique was utilized adhering to the principles of ALARA. COMPARISON STUDY: 02/09/2008. FINDINGS: Mild bibasilar dependent atelectasis. Liver spleen and pancreas are unremarkable. Several renal cysts and parapelvic cysts. No evidence for hydronephrosis. Moderate wall thickening of the bulk of the colon. Trace pericolonic infiltrative change. Mild chronic sigmoid diverticulosis. No evidence for acute diverticulitis. Bladder is midline. IMPRESSION: 1. Moderate wall thickening of the bulk of the colon extending from cecum to the juncture with the sigmoid. 2. The appearance is consistent with a nonspecific colitis. 3. No evidence for abscess collection or obstruction. 4. Mild chronic sigmoid diverticulosis. The above report was generated using voice recognition software. It may contain grammatical, syntax or spelling errors. Electronically signed by: Seferino Reinoso M.D. 07/08/2017 5:52 AM Dictated Date/Time: 07/08/2017 5:50 AM
== END 2017-07-08 03:04 | disposition home or self-care (01) ==
LOC: EDBD 22:10 → C.EDC 22:11
DX: K52.9 Noninfective gastroenteritis and colitis, unspecified (principal); K59.00 Constipation, unspecified; Z98.890 Other specified postprocedural states